=== PATIENT | male | born 1960 | race Two or more races ===

== ENCOUNTER 2020-01-27 11:30 | Emergency (ER) | payer OTHER ==
[~2020-01-27] VITALS: Ht 170.2 cm; Wt 61.2 kg
[~2020-01-27 11:30] MED LIST: URETRON D/S TAB1 TAB PO
[2020-01-27] MEDS ORDERED: LEVSIN/SL0.125 MG SL (15:58)
[2020-01-27] MEDS ORDERED: PEPCID AC20 MG PO (15:58)
== END 2020-01-27 16:21 | disposition home or self-care (01) ==
LOC: ER 11:30
DX: K57.30 Diverticulosis of large intestine without perforation or abscess without bleeding (principal); R10.32 Left lower quadrant pain; Z20.828 Contact with and (suspected) exposure to other viral communicable diseases

== ENCOUNTER 2020-06-17 11:51 | Emergency (ER) | payer OTHER ==
[~2020-06-17] VITALS: Ht 170.2 cm; Wt 61.7 kg
[~2020-06-17 11:51] MED LIST changes: +LEVSIN/SL0.125 MG SL; +PEPCID AC20 MG PO
[2020-06-17] MEDS ORDERED: NORFLEX100MG PO (13:49)
== END 2020-06-17 13:58 | disposition home or self-care (01) ==
LOC: ER 11:51
DX: M54.2 Cervicalgia (principal)